=== PATIENT | female | born 1960 | race African-American/Black ===

== ENCOUNTER 2023-11-06 19:26 | Emergency (ER) | payer OTHER ==
[2023-11-06 19:44] VITALS: PULSE 71; RESP 18; TEMP 97.5; BMI 26.5
[2023-11-06] MEDS ORDERED: METOCLOPRAMIDE HCL INJECTION 10 MG/2 ML VIAL ONE (20:40)
[2023-11-06] MEDS ORDERED: ACETAMINOPHEN INJECTION 100 ML IVPB ONE (20:40)
[2023-11-06] MEDS: ACETAMINOPHEN 1000 MG/100 ML BAG IVPB ONE (20:59)
[2023-11-06] MEDS: METOCLOPRAMIDE HCL INJECTION 10 MG/2 ML VIAL IVPB ONE (20:59)
[2023-11-06 21:08] LABS: BASO % 0.9 % (0-2.0); EOS % 3.1 % (0-4.5); HEMATOCRIT 43.2 % (32.4-45.2); HEMOGLOBIN 14.6 GM/dL (10.7-15.3); LYMPH % 49.5 % (8-40); MCH 30.9 pg (25.7-33.7); MCHC 33.8 g/dl (32.0-36.0); MEAN CELL VOLUME 91.3 fl (80-96); MEAN PLT VOLUME 8.6 fl (7.5-11.1); MONO % 7.6 % (3.8-10.2); NEUT % 38.9 % (42.8-82.8); PLATELET COUNT 266 10^3/uL (134-434); RBC 4.73 M/mm3 (3.60-5.2); RDW 14.2 % (11.6-15.6)
[2023-11-06] MEDS ORDERED: hydrALAZINE HCL 20 MG/ML VIAL ONE (21:13)
[2023-11-06 21:14] LABS: INR 0.92 (0.83-1.09); PROTHROMBIN TIME (PATIENT) 10.7 SEC (9.7-13.0)
[2023-11-06] MEDS: hydrALAZINE HCL 20 MG/ML VIAL IVPUSH ONE (21:21)
[2023-11-06 21:26] LABS: CALCIUM 9.7 mg/dL (8.5-10.1); MAGNESIUM 2.2 mg/dL (1.8-2.4)
[2023-11-06 21:27] LABS: BLOOD UREA NITROGEN 16.5 mg/dL (7-18)
[2023-11-06 21:29] LABS: CREATININE 0.9 mg/dL (0.55-1.3)
[2023-11-06 21:31] LABS: BILIRUBIN,TOTAL 0.3 mg/dL (0.2-1); TOT PROT 7.7 g/dl (6.4-8.2)
[2023-11-06 21:43] VITALS: BP 156/83
[2023-11-06 23:00] LABS: PH,URINE 5.5 (5.0-8.0); URINE APPEARANCE CLEAR; URINE BILIRUBIN NEGATIVE (NEGATIVE); URINE COLOR YELLOW; URINE GLUCOSE (UA) NEGATIVE (NEGATIVE); URINE KETONE TRACE (NEGATIVE); URINE LEUK ESTERASE NEGATIVE (NEGATIVE); URINE NITRITE NEGATIVE (NEGATIVE); URINE PROTEIN NEGATIVE (NEGATIVE); URINE UROBILINOGEN 0.2 mg/dL (0.2-1.0)
== END 2023-11-06 23:39 | disposition admitted as inpatient to this hospital (09) ==
LOC: EDBD 19:26 → JER 19:26
PROC: 3E030NZ Introduction of Analgesics, Hypnotics, Sedatives into Peripheral Vein, Open Approach (ICD-10-PCS; principal; 2023-11-06)
PROC: 3E030GC Introduction of Other Therapeutic Substance into Peripheral Vein, Open Approach (ICD-10-PCS; 2023-11-06)
PROC: 3E030GC Introduction of Other Therapeutic Substance into Peripheral Vein, Open Approach (ICD-10-PCS; 2023-11-06)
DX: R51.9 Headache, unspecified (principal); R07.89 Other chest pain; R42 Dizziness and giddiness; R53.83 Other fatigue
CPT/HCPCS: 36415; 70450-TC; 71045-TC-FY; 80053; 81003; 83735; 84484; 85025; 85610; 85730; 86850; 86900; 86901; 87086; 93005; 93010; 99285-25; J0131